=== PATIENT | male | born 1995 | race Caucasian/White ===

== ENCOUNTER 2018-03-19 04:43 | Emergency (ER) | payer BC ==
[~2018-03-19] VITALS: Ht 182.9 cm; Wt 95.9 kg
[2018-03-19] MEDS ORDERED: EPIPEN ADU0.3 MG/0.3 IM (05:17)
[2018-03-19] MEDS ORDERED: PREDNISONE10 M1 PO (05:17)
[2018-03-19 05:37] VITALS: BP 130/70
[2018-03-20] MEDS ORDERED: NAPROSYN500 MG PO (10:24)
== END 2018-03-19 05:37 | disposition home or self-care (01) ==
LOC: EME 04:43
DX: L50.0 Allergic urticaria (principal)
CPT/HCPCS: 99281; 99284; J7512

== ENCOUNTER 2018-03-20 08:16 | Emergency (ER) | payer BC ==
[~2018-03-20] VITALS: Ht 182.9 cm; Wt 98.2 kg
[~2018-03-20 08:16] MED LIST: EPIPEN ADU0.3 MG/0.3 IM; PREDNISONE10 M1 PO
[2018-03-20] MEDS ORDERED: NAPROSYN500 MG PO (10:24)
[2018-03-20 11:24] VITALS: BP 119/60
== END 2018-03-20 11:26 | disposition home or self-care (01) ==
LOC: EME 08:16
DX: L50.0 Allergic urticaria (principal); R22.1 Localized swelling, mass and lump, neck; R11.0 Nausea; R06.02 Shortness of breath; T36.4X5A Adverse effect of tetracyclines, initial encounter; L70.9 Acne, unspecified
CPT/HCPCS: 99281; 99285; J1200; J2930